=== PATIENT | female | born 1980 | race Hispanic/Latino ===

== ENCOUNTER 2021-10-06 08:27 | Outpatient (CLI) | payer BC ==
[2021-10-06 09:35] LABS: Hemoglobin 13.2 g/dL (12.0-15.5); Mean Corpuscular HGB CONC 33.1 g/dL (32.0-36.0); Mean Corpuscular Hemoglobin 31.2 pg (27.0-33.0); Mean Corpuscular Volume 94.3 fl (81.6-98.3); Mean Platelet Volume 10.5 fl (7.4-10.4); Platelet Count 331 10x3/uL (150-450); RBC Distribution Width 12.8 % (11.5-14.5); Red Blood Cell (RBC) Count 4.23 10x6/uL (3.90-5.03); White Blood Cell (WBC) Count 7.1 10x3/uL (3.5-10.5)
[2021-10-06 09:59] LABS: BHCG - Serum Negative (NEGATIVE); Pregs Control Background? CLEAR/WHITE (CLR/WHITE); Pregs Control Bar Appear? YES (CONTROL BAR)
[2021-10-06 18:25] LABS: SARS-CoV-2 PCR by NAA Not Detected (NotDetected)
== END 2021-10-06 08:28 | disposition home or self-care (01) ==
LOC: CSHLAB 08:27
PROVIDERS: ATTEND Obstetrics & Gynecology
DX: Z01.812 Encounter for preprocedural laboratory examination (principal); Z20.822 Contact with and (suspected) exposure to COVID-19; D25.9 Leiomyoma of uterus, unspecified
CPT/HCPCS: 84703; 85027; 86850; 86900; 86901; U0003; U0005

== ENCOUNTER 2021-10-11 05:29 | Day surgery (SDC) | payer BC ==
[2021-10-06 09:35] LABS: Hemoglobin 13.2 g/dL (12.0-15.5); Mean Corpuscular HGB CONC 33.1 g/dL (32.0-36.0); Mean Corpuscular Hemoglobin 31.2 pg (27.0-33.0); Mean Corpuscular Volume 94.3 fl (81.6-98.3); Mean Platelet Volume 10.5 fl (7.4-10.4); Platelet Count 331 10x3/uL (150-450); RBC Distribution Width 12.8 % (11.5-14.5); Red Blood Cell (RBC) Count 4.23 10x6/uL (3.90-5.03); White Blood Cell (WBC) Count 7.1 10x3/uL (3.5-10.5)
[2021-10-06 09:59] LABS: BHCG - Serum Negative (NEGATIVE); Pregs Control Background? CLEAR/WHITE (CLR/WHITE); Pregs Control Bar Appear? YES (CONTROL BAR)
[2021-10-06 18:25] LABS: SARS-CoV-2 PCR by NAA Not Detected (NotDetected)
[2021-10-09 12:48] VITALS: BMI 32.1
[2021-10-11] MEDS ORDERED: Lidocaine 1% MPF 2 ML VIAL ONE (06:15)
[2021-10-11] MEDS ORDERED: CeleCOXIB 100 MG CAP ONE (06:15)
[2021-10-11] MEDS ORDERED: Famotidine/PF 20 mg/2ml Vial ONE (06:15)
[2021-10-11] MEDS ORDERED: Gabapentin 300 MG CAP ONE (06:15)
[2021-10-11] MEDS ORDERED: EPINEPHrine 1 MG/ML AMP ONE (06:23)
[2021-10-11] MEDS ORDERED: Bupivacaine PF 0.5% 30 ML VIAL ONE (06:23)
[2021-10-11] MEDS ORDERED: ceFAZolin 2 GM/Dextrose 50 ML IVPB ONE (07:17)
[2021-10-11] MEDS ORDERED: PROPOFOL 20 ML ONE (07:43)
[2021-10-11] MEDS ORDERED: Lidocaine 1% PF 5 ML VIAL ONE (07:43)
[2021-10-11] MEDS ORDERED: Rocuronium Bromide 10 MG/ML (10ML VIAL) ONE (07:43)
[2021-10-11] MEDS ORDERED: Fentanyl 250 MCG/5 ML VIAL ONE (07:43)
[2021-10-11] MEDS ORDERED: Ondansetron PF 4 MG/2 ML Vial ONE (07:44)
[2021-10-11] MEDS ORDERED: Dexamethasone 20 MG/5 ML VIAL ONE (07:44)
[2021-10-11] MEDS ORDERED: Phenylephrine 10 MG/ML VIAL ONE ×2 (08:16→08:18)
[2021-10-11] MEDS ORDERED: Glycopyrrolate 0.2 MG/ML 5 ML SYRINGE ONE (09:31)
[2021-10-11] MEDS ORDERED: Fentanyl 100 MCG/2 ML VIAL ONE (10:12)
[2021-10-11] MEDS ORDERED: HYDROcodone/Acetaminophen 5/325 mg Tablet ONE (10:50)
== END 2021-10-11 12:25 | disposition home or self-care (01) ==
LOC: CSHSDC 05:29
PROVIDERS: ATTEND Obstetrics & Gynecology
PROC: 0UT94ZZ Resection of Uterus, Percutaneous Endoscopic Approach (ICD-10-PCS; principal; 2021-10-11)
PROC: 0UT74ZZ Resection of Bilateral Fallopian Tubes, Percutaneous Endoscopic Approach (ICD-10-PCS; principal; 2021-10-11)
DX: D25.9 Leiomyoma of uterus, unspecified (principal); N73.6 Female pelvic peritoneal adhesions (postinfective); Z20.822 Contact with and (suspected) exposure to COVID-19
CPT/HCPCS: 84703; 85027; 86850; 86900; 86901; 88307; C1776; J0171; J0690; J1100; J2370; J2405; J2704; J3010; S0020; S0028; U0003; U0005